=== PATIENT | male | born 1965 | race Caucasian/White ===

== ENCOUNTER 2017-01-03 10:35 | Emergency (ER) | payer MEDICAID, OTHER ==
[~2017-01-03] VITALS: Ht 172.7 cm; Wt 86.0 kg
[~2017-01-03 10:35] MED LIST: CYCL-319 PO; IBUP-1542 PO
[2017-01-03 10:52] VITALS: Ht 172.7 cm; Wt 86.0 kg
[2017-01-03] MEDS ORDERED: IBUP-1542 PO (11:26)
[2017-01-03] MEDS ORDERED: IBUPROFEN 800 MG TAB PO ONE (11:30)
[2017-01-03 12:59] VITALS: BP 133/79; PULSE 63; RESP 18; TEMP 97.7
--- NOTE | 2017-01-03 13:43 | ERD ---
ER Documentation Chief Complaint Date/Time DATE: 01/03/17 TIME: 13:39 Chief Complaint Pt with R wirst pain x 2days and R great toe pain, hx gout. HPI Patient is a 51-year-old male with gout who presents with right wrist pain and right first toe pain. He said the symptoms have been coming and going over for the past 4 months. He is right-handed. He has had no treatment as of yet. He has no fevers. He does not have a primary doctor currently. He has had no recent trauma. ROS All systems reviewed and are negative except as per history of present illness. Medications Home Meds Active Scripts Ibuprofen* (Motrin*) 600 Mg Tab, 600 MG PO Q8, #30 TAB Prov:LOUIS BURR MD 01/03/17 Cyclobenzaprine Hcl* (Cyclobenzaprine Hcl*) 10 Mg Tablet, 10 MG PO TID, #15 TAB Prov:DAVID HATFIELD PA-C 12/15/15 Ibuprofen* (Motrin*) 600 Mg Tab, 600 MG PO Q6H Y for PAIN AND OR ELEVATED TEMP, #30 TAB Prov:DAVID HATFIELD PA-C 12/15/15 Ibuprofen* (Motrin*) 600 Mg Tab, 600 MG PO Q6, #20 TAB Prov:KAN COVARRUBIAS MD 06/05/15 Allergies Allergies: Coded Allergies: No Known Allergy (Unverified , 01/03/17) PMhx/Soc Medical and Surgical Hx: pt denies Medical Hx, pt denies Surgical Hx History of Surgery: No Anesthesia Reaction: No Hx Neurological Disorder: No Hx Respiratory Disorders: No Hx Cardiac Disorders: No Hx Psychiatric Problems: No Hx Miscellaneous Medical Probl: No Hx Alcohol Use: Yes (OCASSIONALLY) Hx Substance Use: No Hx Tobacco Use: Yes Smoking Status: Current every day smoker FmHx Family History: No diabetes Physical Exam Vitals Vital Signs Date Time Temp Pulse Resp B/P Pulse Ox O2 Delivery O2 Flow Rate FiO2 01/03/17 12:59 97.7 63 18 133/79 98 Room Air 01/03/17 10:52 98.0 64 18 117/74 98 Physical Exam Const: No acute distress Head: Atraumatic Eyes: Normal Conjunctiva ENT: Normal External Ears, Nose and Mouth. Neck: Full range of motion..~ No meningismus. Resp: Clear to auscultation bilaterally Cardio: Regular rate and rhythm, no murmurs Abd: Soft, non tender, non distended. Normal bowel sounds Skin: No petechiae or rashes Back: No midline or flank tenderness Ext: No cyanosis, or edema, no swelling or deformity noted, there is redness of the right first toe pain with range of motion Neur: Awake and alert Psych: Normal Mood and Affect Results 24 hrs Current Medications Medications (Trade) Dose Ordered Sig/Danitza Route PRN Reason Start Time Stop Time Status Last Admin Dose Admin Ibuprofen (Motrin) 800 mg ONCE ONCE PO 01/03/17 11:30 01/03/17 11:31 DC 01/03/17 11:29 Procedures/MDM Smoking Cessation Therapy: Pt. was lectured for greater than 3 minutes on the health risks of continued smoking and the benefits of cessation. Patient is a 51-year-old male who presents with right wrist pain and right first toe pain. I believe this is most likely related to a gout attack. There is no sign of joint infection. He has had no trauma and I doubt fracture or dislocation. I believe outpatient management is appropriate. The patient be given a prescription for ibuprofen as he has tried no pain medications as of yet. The patient can return for any worsening symptoms. Departure Diagnosis: Primary Impression: Gout attack Gout site: multiple sites Gout etiology: unspecified cause Qualified Code: M10.9 - Acute gout of multiple sites, unspecified cause Additional Impression: Pain in wrist Laterality: right Qualified Code: M25.531 - Right wrist pain Condition: Fair Patient Instructions: Treating Gout Attacks Referrals: [facility] () Usted se crawford hecho un examen mdico de control que le indica que no est en lilly condicin que requiera tratamiento urgente en el Departamento de Emergencia. Un estudio ms profundo y el tratamiento de noriega condicin pueden esperar sin ningn riesgo hasta que usted sea atendida/o en el consultorio de noriega mdico o lilly cl dontrell. Es responsabilidad suya arreglar lilly cm para el seguimiento del lai. MANEJO DE CONDICIONES NO URGENTES EN EL FUTURO 1) Si usted tiene un mdico de atencin primaria: Usted debera llamar a noriega mdico de atencin primaria antes de venir al departamento de emergencia. Despus de las horas de consultorio, noriega doctor o noriega asociado/a est disponible por telfono. El mdico o enfermero de jayme en el servicio telefnico puede asesorarle por kwasi medio para atender el problema, o lai contrario se puede programar lilly cm. 2) Si usted no tiene un mdico de atencin primaria: Llame al mdico o clnica de referencia que aparece abajo felix las horas de consultorio para hacer lilly cm para que le vean. CLINICAS: [facility] [phone] [address] [facility] [facility] [phone] [facility] [phone] [facility]. [facility] [phone] [facility]. [facility] [phone] [address] [facility] [phone] [address] Additional Instructions: Llame al doctor nombrado abajo (Referral Sources) MAANA y tereso lilly CM PARA DENTRO DE LILLY SEMANA. Dgale a la secretaria que nosotros le instruimos hacer esta cm.Avise o llame si noriega condicin se empeora antes de la cm. LOUIS BURR MD January 03, 2017 13:43
== END 2017-01-03 13:00 | disposition home or self-care (01) ==
LOC: FTE 10:35
DX: M10.9 Gout, unspecified (principal); F17.210 Nicotine dependence, cigarettes, uncomplicated
CPT/HCPCS: Z7502; Z7610; 99283

== ENCOUNTER 2017-06-19 09:10 | Emergency (ER) | payer OTHER ==
[~2017-06-19] VITALS: Ht 157.5 cm; Wt 79.0 kg
[2017-06-19 09:13] VITALS: Ht 157.5 cm; Wt 79.0 kg
[2017-06-19] MEDS ORDERED: NAPR-260 PO (10:26)
--- NOTE | 2017-06-19 10:32 | ERD ---
ER Documentation Chief Complaint Date/Time DATE: 06/19/17 TIME: 10:30 Chief Complaint left heel pain since sturday HPI 52-year-old male presents emergency department with left-sided localized heel pain that started about 2 days ago and woke up in the morning. He points to his Achilles, described as achy, worse when he weight bears and better at rest. He has no weakness. He denies low back pain associated, saddle anesthesia loss of bowel bladder function. He denies fevers or chills. Patient does not recall any history of trauma. ROS All systems reviewed and are negative except as per history of present illness. Medications Home Meds Active Scripts Naproxen* (Naprosyn*) 500 Mg Tablet, 500 MG PO BID Y for PAIN AND/OR INFLAMMATION, #30 TAB Prov:GISSELLE CALL PA-C 06/19/17 Ibuprofen* (Motrin*) 600 Mg Tab, 600 MG PO Q8, #30 TAB Prov:LOUIS BURR MD 01/03/17 Cyclobenzaprine Hcl* (Cyclobenzaprine Hcl*) 10 Mg Tablet, 10 MG PO TID, #15 TAB Prov:DAVID HATFIELD PA-C 12/15/15 Ibuprofen* (Motrin*) 600 Mg Tab, 600 MG PO Q6H Y for PAIN AND OR ELEVATED TEMP, #30 TAB Prov:DAVID HATFIELD PA-C 12/15/15 Ibuprofen* (Motrin*) 600 Mg Tab, 600 MG PO Q6, #20 TAB Prov:KAN COVARRUBIAS MD 06/05/15 Allergies Allergies: Coded Allergies: No Known Allergy (Unverified , 01/03/17) PMhx/Soc History of Surgery: No Anesthesia Reaction: No Hx Neurological Disorder: No Hx Respiratory Disorders: No Hx Cardiac Disorders: No Hx Psychiatric Problems: No Hx Miscellaneous Medical Probl: No Hx Alcohol Use: Yes (OCASSIONALLY) Hx Substance Use: No Hx Tobacco Use: Yes Smoking Status: Never smoker Physical Exam Vitals Vital Signs Date Time Temp Pulse Resp B/P Pulse Ox O2 Delivery O2 Flow Rate FiO2 06/19/17 09:13 98.1 66 18 141/75 99 Physical Exam = General: Well-developed, well-nourished. The patient appears in no acute distress. HEENT: Head is normocephalic, atraumatic. No scleral icterus. Neck: Supple. Nontender. Lungs: Clear to auscultation. Normal air movement. Heart: Regular rate and rhythm. S1 and S2 are normal. No murmurs, gallops, or rubs. Abdomen: Nondistended. Extremities: Tenderness with ankle flexion and dorsiflexion on the left side, there is no foot drop. He is able to flex and extend fully, there are no bony deformities, no warmth, no erythema, no drainage. Neurologic: Alert and oriented 3. No focal deficits. Normal speech and gait. Skin: Normal turgor. No rash or lesions. Procedures/MDM 49-year-old male presents with left-sided ankle pain, most consistent with Achilles tendinitis. There is no evidence of Achilles tendon rupture, no signs of infectious origin, septic joint cause, fracture, dislocation. No evidence of footdrop, no signs of cauda equina. Patient will be advised to rest, ice, and take NSAIDs. Departure Diagnosis: Primary Impression: Foot pain Condition: Good Patient Instructions: Tendonitis GISSELLE CALL PA-C Jun 19, 2017 10:32
== END 2017-06-19 10:46 | disposition home or self-care (01) ==
LOC: FTE 09:10
DX: M79.672 Pain in left foot (principal); Z87.891 Personal history of nicotine dependence
CPT/HCPCS: 99283

== ENCOUNTER 2017-10-09 14:19 | Emergency (ER) | END 2017-10-09 20:44 | disposition left against medical advice (07) ==

== ENCOUNTER 2018-04-16 08:51 | Emergency (ER) | END 2018-04-16 09:24 | disposition home or self-care (01) ==

== ENCOUNTER 2018-12-31 09:30 | Emergency (ER) | payer OTHER ==
[~2018-12-31] VITALS: Ht 162.6 cm; Wt 86.2 kg
[~2018-12-31 09:30] MED LIST changes: +COLC0.6T6 PO; -CYCL-319 PO; +CYCL10TA7 PO; +HYDR-4011 PO; +NAPR-985 PO
[2018-12-31 09:49] VITALS: BP 142/93; PULSE 66; RESP 18; Ht 162.6 cm; Wt 86.2 kg
[2018-12-31] MEDS ORDERED: PRED20TA PO (11:21)
[2018-12-31] MEDS ORDERED: HYDR-4011 PO (11:21)
[2018-12-31] MEDS ORDERED: predniSONE 20 MG TAB PO ONE (11:30)
--- NOTE | 2018-12-31 13:16 | ERD ---
ER Documentation Chief Complaint Chief Complaint LEFT BIG TOE JOINT PAIN X1 DAYS, HX:GOUT HPI 53-year-old male with history of gout complains of pain to the left big toe for the past day. States that the pain is consistent with his previous history of gout attacks. Denies any treatments. States the pain is worse with palpation. States the pain is currently 7 out of 10 in intensity. Denies fevers, chills, numbness, tingling, weakness, history of trauma, edema, fevers. ROS All systems reviewed and are negative except as per history of present illness. Medications Home Meds Active Scripts Hydrocodone/Acetaminophen (Wayne 5-325 Tablet) 1 Each Tablet, 1 TAB PO Q6H PRN for PAIN, #10 TAB Prov:JULI PAZ 12/31/18 Prednisone* (Prednisone*) 20 Mg Tab, 40 MG PO DAILY for gout for 6 Days, TAB Prov:JULI PAZ 12/31/18 Naproxen* (Naprosyn*) 500 Mg Tablet, 500 MG PO BID PRN for PAIN AND/OR INFLAMMATION, #30 TAB Prov:PO CRANE PA-C 04/16/18 Hydrocodone/Acetaminophen (Wayne 5-325 Tablet) 1 Each Tablet, 1 TAB PO Q6H PRN for PAIN, #7 TAB Prov:PO CRANE PA-C 04/16/18 Colchicine* (Colcrys*) 0.6 Mg Tablet, 0.6 MG PO DAILY, #3 TAB Prov:PO CRANE PA-C 04/16/18 Naproxen* (Naprosyn*) 500 Mg Tablet, 500 MG PO BID PRN for PAIN AND/OR INFLAMMATION, #30 TAB Prov:GISSELLE CALL PA-C 06/19/17 Ibuprofen* (Motrin*) 600 Mg Tab, 600 MG PO Q8, #30 TAB Prov:LOUIS BURR MD 01/03/17 Cyclobenzaprine Hcl* (Cyclobenzaprine Hcl*) 10 Mg Tablet, 10 MG PO TID, #15 TAB Prov:DAVID HATFIELD PA-C 12/15/15 Ibuprofen* (Motrin*) 600 Mg Tab, 600 MG PO Q6H PRN for PAIN AND OR ELEVATED TEMP, #30 TAB Prov:DAVID HATFIELD PA-C 12/15/15 Ibuprofen* (Motrin*) 600 Mg Tab, 600 MG PO Q6, #20 TAB Prov:KAN COVARRUBIAS MD 06/05/15 Allergies Allergies: Coded Allergies: No Known Allergy (Unverified , 01/03/17) PMhx/Soc History of Surgery: No Anesthesia Reaction: No Hx Neurological Disorder: No Hx Respiratory Disorders: No Hx Cardiac Disorders: No Hx Psychiatric Problems: No Hx Miscellaneous Medical Probl: Yes (gout) Hx Alcohol Use: Yes (OCASSIONALLY) Hx Substance Use: No Hx Tobacco Use: Yes Smoking Status: Current some day smoker FmHx Family History: No diabetes, No coronary disease, No other Physical Exam Vitals Vital Signs Date Temp Pulse Resp B/P (MAP) Pulse Ox O2 O2 Flow FiO2 Time Delivery Rate 12/31/18 98.2 66 18 142/93 100 09:49 (109) Physical Exam Const: No acute distress Head: Atraumatic Eyes: Normal Conjunctiva Resp: Clear to auscultation bilaterally Cardio: Regular rate and rhythm, no murmurs Skin: No petechiae or rashes Back: No midline or flank tenderness Ext: Tenderness to palpation over the lateral aspect of the first left MTP joint There is no bony deformity or erythema or edema noted. Neur: Awake and alert Psych: Normal Mood and Affect Results 24 hrs Current Medications Medications Dose Sig/Danitza Start Time Status Last (Trade) Ordered Route PRN Stop Time Admin Dose Reason Admin Prednisone 40 mg ONCE ONCE 12/31/18 DC 12/31/18 (Prednisone) PO 11:30 11:24 12/31/18 11:31 Procedures/MDM Patient's presentation is consistent with a gout attack. Patient given prednisone in the ER. Patient discharged with Rx for prednisone as well as Wayne for breakthrough pain. Patient advised to follow-up with his primary care provider regarding managing gout as it is a chronic condition which is been managed on outpatient basis. I have low suspicion for neurovascular compromise, compartment syndrome, fracture, osteomyelitis, septic joint, or other emergent condition. Patient discharged with strict ER precautions. Patient advised to follow up with PMD. All questions answered at discharge. Departure Diagnosis: Primary Impression: Gout attack Gout site: foot Gout etiology: unspecified cause Laterality: left Qualified Codes: M10.9 - Gout, unspecified Condition: Stable Patient Instructions: Gout Diet Referrals: [facility] YOU HAVE RECEIVED A MEDICAL SCREENING EXAM AND THE RESULTS INDICATE THAT YOU DO NOT HAVE A CONDITION THAT REQUIRES URGENT TREATMENT IN THE EMERGENCY DEPARTMENT. FURTHER EVALUATION AND TREATMENT OF YOUR CONDITION CAN WAIT UNTIL YOU ARE SEEN IN YOUR DOCTORS OFFICE WITHIN THE NEXT 1-2 DAYS. IT IS YOUR RESPONSIBILITY TO MAKE AN APPOINTMENT FOR FOLOW-UP CARE. IF YOU HAVE A PRIMARY DOCTOR --you should call your primary doctor and schedule an appointment IF YOU DO NOT HAVE A PRIMARY DOCTOR YOU CAN CALL OUR PHYSICIAN REFERRAL HOTLINE AT IF YOU CAN NOT AFFORD TO SEE A PHYSICIAN YOU CAN CHOSE FROM THE FOLLOWING [facility] [address] [facility] [address] [facility] [facility] [address] [facility] [address] [facility]. [facility] [address] [facility]. [facility]. [address] Additional Instructions: FOLLOW UP WITH YOUR PRIMARY CARE PHYSICIAN TOMORROW.Return to this facility if you are not improving as expected. JULI PAZ Dec 31, 2018 13:16
== END 2018-12-31 11:43 | disposition home or self-care (01) ==
LOC: FTE 09:30
DX: M10.9 Gout, unspecified (principal); F17.210 Nicotine dependence, cigarettes, uncomplicated
CPT/HCPCS: J7512; Z7502; 99283